=== PATIENT | male | born 1965 ===

== ENCOUNTER → 2024-02-24 | Day surgery (SDC) | payer OTHER ==
[2024-02-10 09:31] LABS: HEMATOCRIT 46.4 % (39.0-48.0); HEMOGLOBIN 15.9 g/dL (13-16.00); MEAN CELL VOLUME 90.2 fL (80.0-100.00); MEAN CORPUSCULAR HGB CONC 34.4 g/dl (32.0-36.0); PLATELET COUNT 330 K/uL (150-450); RED BLOOD COUNT 5.14 M/uL (4.00-6.00); RED CELL DISTRIBUTION WIDTH 14.2 % (11.5-14.5)
[2024-02-10 09:32] LABS: URINE APPEARANCE Clear; URINE BILIRRUBIN Negative (NEGATIVE); URINE BLOOD Negative; URINE COLOR Yellow; URINE GLUCOSE Negative (NEGATIVE); URINE LEUKOCYTE Negative; URINE NITRATE Negative; URINE PROTEIN Negative (NEGATIVE); URINE UROBILINOGEN 0.2 E.U./dl
[2024-02-10 09:35] LABS: URINE BACTERIA 6.2 uL (0.0-1933); URINE EPITHELIAL CELLS 0.7 uL (0.0-38.8); URINE RBC 1.8 uL (0.0-20.8); URINE WBC 2.1 uL (0.0-23.2)
[2024-02-10 09:50] LABS: PARTIAL THROMBOPLASTIN TIME 31.2 SECONDS (22.0-34.0); PROTHROMBIN TIME 10.5 SECONDS (9.0-11.5)
[2024-02-10 10:13] LABS: ALBUMIN 3.9 gm/dL (3.4-5.0); BILIRUBIN TOTAL 0.41 mg/dL (0.3-1.2); CALCIUM 9.4 mg/dL (8.5-10.1); CREATININE SERUM 0.95 mg/dL (0.70-1.30); GFR 81.43; GLOBULINA 3.2 G/DL (2.4-3.5); POTASSIUM 5.52 mEq/L (3.5-5.1); TOTAL PROTEIN 7.1 gm/dL (6.4-8.2)
[~2024-02-24] VITALS: Ht 170.2 cm; Wt 77.1 kg
[~2024-02-24] MED LIST: AMLODIPINE; CEFAZOLIN SODIUM 1,000 MG VIAL IV ONE; CEFAZOLIN SODIUM 1,000 MG VIAL ONE; PROTONIX40 M1
== END | disposition home or self-care (01) ==
LOC: ADM 02-10 07:00 → CIR.AMB 07:00
PROVIDERS: ATTEND Surgery
DX: K43.6 Other and unspecified ventral hernia with obstruction, without gangrene (principal)
CPT/HCPCS: 49594; C1781